=== PATIENT | female | born 1990 | race Native Hawaiian/Other Pacific Islander ===

== ENCOUNTER 2020-04-20 02:41 | Outpatient (CLI) | payer SELFPAY ==
--- NOTE | 2020-04-20 02:55 | NUR ---
LIOR DAWSON presented to unit via from ED, BY W/C, accompanied by RN FACULTY, with c/o 20WKS & 3 DAYS,FEELS LIKE SOMETHING FALLING OUT OF VAGINA. LIOR DAWSON weighed, gowned, voided, and to bed. EFHM and TOCO applied, VS taken. LIOR DAWSON oriented to bed controls, call light, TV, heat, and A/C controls.
[2020-04-20 03:34] LABS: BILIRUBIN,URINE NEGATIVE (NEGATIVE); CLARITY,URINE SL CLOUDY; COLOR,URINE YELLOW; GLUCOSE, URINE (UA) NEGATIVE (NEGATIVE); KETONES,URINE NEGATIVE (NEGATIVE); LEUKOCYTE ESTERASE ,URINE 1+ (NEGATIVE); NITRITE,URINE NEGATIVE (NEGATIVE); PROTEIN,URINE NEGATIVE (NEGATIVE)
[2020-04-20 03:38] VITALS: BP 97/56
[2020-04-20 03:44] VITALS: BP 97/56
[2020-04-20 03:47] LABS: BACTERIA,URINE NEGATIVE /HPF; RENAL EPITHELIAL CELLS,URINE 0-2 /HPF; SQUAMOUS EPITHELIAL CELL,UR 0-2 /HPF; WBC,URINE 0-2 /HPF
--- NOTE | 2020-04-20 04:00 | NUR ---
Discharge packet given and explained, understanding voiced, pt aware clinic will call her for ultrasound and to call clinic if she does not hear from them. Understanding voiced by pt. No further concerns noted.
--- NOTE | 2020-04-20 04:05 | NUR ---
Pt ambulatory off unit at this time accompanied by self, belongings in hand, no ss distress noted.
--- NOTE | 2020-04-21 08:52 | Physician Query-Final Dx ---
REDDY TAYLOR 04/21/20 0852: Clinic Account Progress/Dx Physician Query: Please give diagnosis Please include # weeks gestation Date of Service Apr 20, 2020 at 02:41 ESTEBAN STACK MD 04/21/209: Clinic Account Progress/Dx DIAGNOSIS: Diagnosis Second trimester 20 week gestation Vaginal pressure REDDY TAYLOR Apr 21, 2020 08:52 ESTEBAN STACK MD Apr 21, 2020 21:09
== END 2020-04-20 04:05 | disposition home or self-care (01) ==
LOC: WSo 02:41 → LDRP 02:42 → WSo 04:05
PROVIDERS: ATTEND Family Medicine
DX: O99.891 Other specified diseases and conditions complicating pregnancy (principal); Z3A.20 20 weeks gestation of pregnancy
CPT/HCPCS: 81000; G0463; 99213

== ENCOUNTER 2020-09-23 06:00 | Inpatient (IN) | payer MEDICAID ==
[2020-09-23] VITALS (39 sets, daily range): BP systolic 91–131; BP diastolic 51–83
[~2020-09-23] VITALS: Ht 162.5 cm; Wt 59.8 kg
--- NOTE | 2020-09-23 07:32 | History & Physical-OB ---
OB - Chief Complaint & HPI Date/Time Date of Admission: Date of Admission: Sep 23, 2020 at 06:16 Date seen by a Provider: Sep 23, 2020 Time Seen by a Provider: 11:33 Chief Complaint/History OB-Reason for Admission/Chief: Induction of Labor Hx : 6 Hx Para: 4104 Expected Date of Delivery: Sep 24, 2020 Gestational Age in Weeks: 39 Gestational Age in Days: 6 Indication for induction: other (history of 40 week stillbirth) History of Labs O+, antibody neg, RI. HIV/HepB/RPR NR. GC/chlamydia neg. GBS neg. Allergies and Home Medications Allergies Coded Allergies: No Known Drug Allergies (Unverified , 09/16/20) Home Medications No Active Prescriptions or Reported Meds Patient Home Medication List Home Medication List Reviewed: Yes OB - History Hx of Present Care: Yes Ultrasounds: Normal mid trimester US Obstetrical Complications: None Information Induced Hypertension: No Maternal Gestational Diabetes: No Hemorrhage: No Obstetrical History Hx : 6 Hx Para: 5 Hx # Term Pregnancies: 4 Hx # Pregnancies: 1 Number of Living Children: 4 Hx Termination: No Hx Multiple Gestation: No Hx Ectopic : No Hx Stillbirth: Yes Hx Complication: No Hx Induced Hypertens: Yes Hx Maternal Gestational Diabet: No Hx Hemorrhage: No Delivery History Hx Dystocia: No Hx Forceps Assisted Delivery: No Hx Vacuum Extraction Assisted: No Hx Placenta Abnormality: No Hx Distress: No Hx Large For Gestational Age I: No Hx Small for Gestational Age I: No Hx Section: No Hx Vaginal Delivery Post C-Sec: No Hx Blood Disorders: No Adverse Rxn to Tranfusion: No Patient Past Medical History PMHx: Denies SurgHx: Denies Social History/Family History Alcohol Use: Denies Use Recreational Drug Use: No Smoking Cessation: Never smoker Immunizations Rubella: immune RPR/VDRL: Negative GBS Status: Negative HBsAG: Negative OB - Admission Exam Physical Exam HEENT: NCAT Extremities: Normal Cervical Dilatation: 3cm Effacement: 50% Station: -3 Membranes: Ruptured (at time of exam) Amniotic Fluid: Clear Heart Rate: 140's Accelerations: Accelerations Present Decelerations: No Decelerations Short Term Variability: Present Residential Variability: Average (6-25) Contractions on Admission: None Cooper Scoring Tool (Modified) Dilation (cm): 3-4cm (2) Effacement (%): 51-79% (2) Descent/Station: -3 (0) Cervix Consistency: Soft (2) Cervix Position: Middle/Mid-Position (1) Add 1 point for: Each previous vaginal delivery (1) (5) Cooper Score: 12 OB - Assessment/Plan/Diagnosis Assessment Assessment: induction of labor Admission Dx Induction of labor at 39 weeks gestation History of stillbirth GBS negative Admission Status: Inpatient Order (span 2 midnights) Reason for Inpatient Admission: Labor, delivery and course Plan Plan: Induction Induction Method: AROM (and pitocin) FERNANDO PORRAS MD Sep 23, 2020 07:32
[2020-09-23 08:41] LABS: BASOPHILS % (AUTO) 0 % (0-10); EOSINOPHILS # (AUTO) 0.4 10^3/uL (0.0-0.3); EOSINOPHILS % (AUTO) 4 % (0-10); HEMATOCRIT 32 % (35-52); HEMOGLOBIN 10.6 g/dL (11.5-16.0); LYMPHOCYTES # (AUTO) 1.7 10^3/uL (1.0-4.0); LYMPHOCYTES % (AUTO) 17 % (12-44); MEAN CORPUSCULAR HEMOGLOBIN 27 pg (25-34); MEAN CORPUSCULAR HGB CONC 34 g/dL (32-36); MEAN CORPUSCULAR VOLUME 81 fL (80-99); MONOCYTES # (AUTO) 0.6 10^3/uL (0.0-1.0); MONOCYTES % (AUTO) 5 % (0-12); NEUTROPHILS # (AUTO) 7.6 10^3/uL (1.8-7.8); NEUTROPHILS % (AUTO) 72 % (42-75); PLATELET COUNT 297 10^3/uL (130-400); WHITE BLOOD COUNT 10.5 10^3/uL (4.3-11.0)
[2020-09-23] MEDS ORDERED: OXYTOCIN PRE-MIX DRIP 500 ML IV SCH ×2 (08:45→18:45)
[2020-09-23] MEDS ORDERED: MINERAL OIL CONCENTRATE 99.9% 15 ML UDC TOP PRN (08:45)
[2020-09-23] MEDS: D5 LR IV SOLUTION 1,000 ML IV SCH ×2 (09:08→12:57)
[2020-09-23] MEDS ORDERED: CATHETER FLUSH 10 ML SYR IV SCH (14:00)
[2020-09-23] MEDS ORDERED: fentaNYL INJ 100 MCG/2 ML AMP ONE (15:54)
[2020-09-23] MEDS ORDERED: fentaNYL INJ 100 MCG/2 ML AMP IVP PRN (16:00)
[2020-09-23] MEDS ORDERED: LIDOCAINE/EPI 2% 1:200,00 (XYLOCAINE) 20 ML VIAL ONE (17:24)
[2020-09-23] MEDS ORDERED: LIDOCAINE/EPI 2% 1:100,00 (XYLOCAINE) 20 ML VIAL INJ ONE (18:30)
--- NOTE | 2020-09-23 18:34 | OB Labor & Delivery Record ---
Vag Delivery Note Vag Delivery Note Date of Delivery: 09/23/20 Preoperative Diagnosis: Jessica Lakhani is a (30 /Para 6 / 5, Gestational Age (wks)39with 6 days Postoperative Diagnosis: Same Surgeon: FERNANDO PORRAS International Nurse: JOHN Munoz Anesthesia: none Delivery Type: Findings: Viable male , apgars 7/8, weight 3090 Lacerations: first degree perineal laceration Intact placenta with 3 vessel cord. No nuchal cord, body cord or shoulder dystocia Estimated Blood Loss: 100 ml Complications: None Condition: Stable Description of Procedure: The patient is a 30 year old female who presented for induction of labor. She was admitted and informed consent was obtained. Her labor course was u nremarkable. She progressed to complete dilatation and began to push. She was then set up for delivery. The infant's head was delivered atraumatically in the OA position. The shoulders and remainder of the 's body were then delivered without difficulty. Upon delivery, the head was held below the level of the perineum and the mouth and nares were bulb suctioned. The cord was doubly clamped and cut and the infant was handed off to the pediatric staff. An intact placenta with 3-vessel cord delivered via Emily and there was found to be minimal bleeding.~ Vigorous fundal massage was performed and the fundus was found to be firm. IV oxytocin was given. Examination of the vagina and perineum revealed a first degree perineal laceration repaired in the usual fashion with 3-0 vicryl suture. Following the repair, sponge, instrument and needle counts were correct. Mom and baby were both in stable condition in the labor suite. Vitals - Labs Vital Signs - I&O Vital Signs Date Time Temp Pulse Resp B/P (MAP) Pulse Ox O2 Delivery O2 Flow Rate FiO2 09/23/20 17:45 82 20 117/69 (85) Room Air 09/23/20 17:30 68 20 122/64 (83) Room Air 09/23/20 17:15 78 20 115/71 (86) 99 Room Air 09/23/20 17:00 84 20 131/81 (98) 99 Room Air 09/23/20 16:45 72 20 113/74 (87) 99 Room Air 09/23/20 16:30 70 20 112/70 (84) 98 Room Air 09/23/20 16:15 69 20 108/72 (84) 99 Room Air 09/23/20 16:00 83 20 121/77 (92) 99 Room Air 09/23/20 15:45 36.2 76 20 106/69 (81) 100 Room Air 09/23/20 15:30 70 20 109/66 (80) 99 Room Air 09/23/20 15:15 84 20 104/64 (77) 99 Room Air 09/23/20 15:00 74 20 100/62 (75) 100 Room Air 09/23/20 14:45 78 20 102/62 (75) 98 Room Air 09/23/20 14:30 88 20 98/55 (69) 99 Room Air 09/23/20 14:15 82 20 94/51 (65) 99 Room Air 09/23/20 14:00 75 20 93/52 (66) 98 Room Air 09/23/20 13:45 71 20 93/53 (66) 99 Room Air 09/23/20 13:30 67 20 98/83 (88) 100 Room Air 09/23/20 13:15 72 20 108/60 (76) 99 Room Air 09/23/20 13:00 72 20 108/60 (76) 99 Room Air 09/23/20 12:45 83 20 107/64 (78) 99 Room Air 09/23/20 12:30 66 20 99/61 (74) 99 Room Air 09/23/20 12:15 72 20 110/71 (84) 100 Room Air 09/23/20 12:00 68 20 106/68 (81) 99 Room Air 09/23/20 11:45 67 20 109/72 (84) 99 Room Air 09/23/20 11:30 65 20 111/75 (87) 100 Room Air 09/23/20 11:03 36.9 82 20 98 Room Air 09/23/20 11:00 79 20 95/57 (70) 98 Room Air 09/23/20 10:30 74 20 97/55 (69) 99 Room Air 09/23/20 10:00 75 20 91/58 (69) 99 Room Air 09/23/20 09:30 71 20 101/62 (75) 100 Room Air 09/23/20 09:10 76 20 103/55 (71) 100 Room Air 6/24/21 08:00 90 20 97/61 (73) 99 Room Air 09/23/20 07:20 36.9 90 20 99/70 (80) 98 Room Air Labs Laboratory Tests 09/23/20 07:35: White Blood Count 10.5, Red Blood Count 3.87, Hemoglobin 10.6L, Hematocrit 32L, Mean Corpuscular Volume 81, Mean Corpuscular Hemoglobin 27, Mean Corpuscular Hemoglobin Concent 34, Red Cell Distribution Width 13.7, Platelet Count 297, Mean Platelet Volume 9.0, Immature Granulocyte % (Auto) 1, Neutrophils (%) (Auto) 72, Lymphocytes (%) (Auto) 17, Monocytes (%) (Auto) 5, Eosinophils (%) (Auto) 4, Basophils (%) (Auto) 0, Neutrophils # (Auto) 7.6, Lymphocytes # (Auto) 1.7, Monocytes # (Auto) 0.6, Eosinophils # (Auto) 0.4H, Basophils # (Auto) 0.0, Immature Granulocyte # (Auto) 0.1 FERNANDO PORRAS MD Sep 23, 2020 18:34
[2020-09-23] MEDS ORDERED: BENZOCAINE/MENTHOL (DERMOPLAST) 56 ML CAN TP PRN (18:45)
[2020-09-23] MEDS ORDERED: WITCH HAZEL(TUCKS) 40 EA JAR TOP PRN (18:45)
[2020-09-23] MEDS ORDERED: MEASLES,MUMPS,RUBELLA 1 EA INJ SQ ONE (18:45)
[2020-09-23] MEDS ORDERED: TETANUS,DIPTH,PERTUSS P/F (BOOSTRIX) 0.5 ML VIAL IM ONE (18:45)
[2020-09-23] MEDS: DOCUSATE SODIUM 100 MG (COLACE) CAP PO SCH (21:06)
[2020-09-23] MEDS: IBUPROFEN 600 MG (MOTRIN) TAB PO SCH (21:06)
[2020-09-23] MEDS: CATHETER FLUSH 10 ML SYR IV SCH (21:07)
[2020-09-24 01:23] VITALS: BP 106/59
[2020-09-24] MEDS: IBUPROFEN 600 MG (MOTRIN) TAB PO SCH ×4 (01:23→18:54)
[2020-09-24 04:32] VITALS: BP 105/67
[2020-09-24 05:53] LABS: BASOPHILS # (AUTO) 0.1 10^3/uL (0.0-0.1); BASOPHILS % (AUTO) 0 % (0-10); EOSINOPHILS # (AUTO) 0.2 10^3/uL (0.0-0.3); EOSINOPHILS % (AUTO) 1 % (0-10); HEMATOCRIT 34 % (35-52); HEMOGLOBIN 10.9 g/dL (11.5-16.0); LYMPHOCYTES # (AUTO) 1.9 10^3/uL (1.0-4.0); LYMPHOCYTES % (AUTO) 11 % (12-44); MEAN CORPUSCULAR HEMOGLOBIN 27 pg (25-34); MEAN CORPUSCULAR HGB CONC 32 g/dL (32-36); MEAN CORPUSCULAR VOLUME 83 fL (80-99); MEAN PLATELET VOLUME 8.8 fL (9.0-12.2); MONOCYTES # (AUTO) 0.7 10^3/uL (0.0-1.0); MONOCYTES % (AUTO) 4 % (0-12); NEUTROPHILS # (AUTO) 14.5 10^3/uL (1.8-7.8); NEUTROPHILS % (AUTO) 83 % (42-75); PLATELET COUNT 259 10^3/uL (130-400); WHITE BLOOD COUNT 17.4 10^3/uL (4.3-11.0)
[2020-09-24] MEDS: CATHETER FLUSH 10 ML SYR IV SCH (06:03)
[2020-09-24 06:36] LABS: EOSINOPHILS % (MANUAL) 1 %; LYMPHOCYTES % (MANUAL) 13 %; MONOCYTES % (MANUAL) 1 %; NEUTROPHILS % (MANUAL) 85 %; RBC MORPH NORMAL
[2020-09-24] MEDS ORDERED: IBUP-844 PO (06:46)
[2020-09-24] MEDS ORDERED: FERR325T5 PO (06:46)
[2020-09-24] MEDS ORDERED: PREN1TAB79 PO (06:46)
--- NOTE | 2020-09-24 06:46 | Discharge Summary ---
Discharge Summary Hospital Course Hospital Course Date of Admission: Sep 23, 2020 at 06:16 Admission Diagnosis : Family Physician/Provider: Fernando Lomeli MD Date of Discharge: 09/24/20 Discharge Diagnosis: s/p spontaneous vaginal delivery First degree perineal laceration repair Hospital Course: Pt admitted for IOL at 39w6d and had unremarkable labor, delivery and course. Labs and Pending Lab Test: Laboratory Tests 09/23/20 07:35: White Blood Count 10.5, Red Blood Count 3.87, Hemoglobin 10.6L, Hematocrit 32L, Mean Corpuscular Volume 81, Mean Corpuscular Hemoglobin 27, Mean Corpuscular Hemoglobin Concent 34, Red Cell Distribution Width 13.7, Platelet Count 297, Mean Platelet Volume 9.0, Immature Granulocyte % (Auto) 1, Neutrophils (%) (Auto) 72, Lymphocytes (%) (Auto) 17, Monocytes (%) (Auto) 5, Eosinophils (%) (Auto) 4, Basophils (%) (Auto) 0, Neutrophils # (Auto) 7.6, Lymphocytes # (Auto) 1.7, Monocytes # (Auto) 0.6, Eosinophils # (Auto) 0.4H, Basophils # (Auto) 0.0, Immature Granulocyte # (Auto) 0.1 09/24/20 05:40: White Blood Count 17.4H, Red Blood Count 4.05, Hemoglobin 10.9L, Hematocrit 34L, Mean Corpuscular Volume 83, Mean Corpuscular Hemoglobin 27, Mean Corpuscular Hemoglobin Concent 32, Red Cell Distribution Width 13.7, Platelet Count 259, Mean Platelet Volume 8.8L, Immature Granulocyte % (Auto) 1, Neutrophils (%) (Auto) 83H, Lymphocytes (%) (Auto) 11L, Monocytes (%) (Auto) 4, Eosinophils (%) (Auto) 1, Basophils (%) (Auto) 0, Neutrophils # (Auto) 14.5H, Lymphocytes # (Auto) 1.9, Monocytes # (Auto) 0.7, Eosinophils # (Auto) 0.2, Basophils # (Auto) 0.1, Immature Granulocyte # (Auto) 0.1, Neutrophils % (Manual) 85, Lymphocytes % (Manual) 13, Monocytes % (Manual) 1, Eosinophils % (Manual) 1, Blood Morphology Comment NORMAL Home Meds Active No Active Prescriptions or Reported Medications Assessment/Pt DC Instructions Follow up with Dr. Lomeli in 6 weeks for visit. Discharge Diet: Regular Diet Activity as Tolerated: Yes (avoid strenuous activity x 6 weeks) Discharge Physical Examination Allergies: Coded Allergies: No Known Drug Allergies (Unverified , 09/16/20) General Appearance: No Apparent Distress Respiratory: Lungs Clear, Normal Breath Sounds Cardiovascular: Regular Rate, Rhythm, No Murmur Gastrointestinal: Other (fundus firm below umbilicus) Extremity: No Pedal Edema Skin: Normal Color, Warm/Dry Neurologic/Psychiatric: Normal Mood/Affect FERNANDO LOMELI MD Sep 24, 2020 06:46
[2020-09-24 08:20] VITALS: BP 95/58
[2020-09-24] MEDS: DOCUSATE SODIUM 100 MG (COLACE) CAP PO SCH ×2 (08:20→20:00)
[2020-09-24 13:17] VITALS: BP 101/61
[2020-09-24 16:16] VITALS: BP 93/51
[2020-09-24 19:59] VITALS: BP 97/65
[2020-09-25] MEDS: CATHETER FLUSH 10 ML SYR IV SCH ×2 (00:02→06:46)
[2020-09-25 00:58] VITALS: BP 100/64
[2020-09-25] MEDS: IBUPROFEN 600 MG (MOTRIN) TAB PO SCH ×3 (00:59→14:10)
[2020-09-25] MEDS: DOCUSATE SODIUM 100 MG (COLACE) CAP PO SCH (08:29)
[2020-09-25 08:30] VITALS: BP 94/60
[2020-09-25 14:15] VITALS: BP 102/58
[2020-09-26] MEDS ORDERED: PRAM15FO3 TP (01:42)
== END 2020-09-25 18:05 | disposition home or self-care (01) | DRG 807 ==
LOC: LDRP 06:16 → WS 21:44
PROVIDERS: ADMIT Family Medicine; ATTEND Family Medicine
PROC: 10E0XZZ Delivery of Products of Conception, External Approach (ICD-10-PCS; principal; 2020-09-23)
PROC: 0HQ9XZZ Repair Perineum Skin, External Approach (ICD-10-PCS; 2020-09-23)
DX: O70.0 First degree perineal laceration during delivery (principal); Z37.0 Single live birth; Z3A.39 39 weeks gestation of pregnancy
CPT/HCPCS: 36415; 85007; 85025; 85027; 86850; 86900; 86901

== ENCOUNTER 2020-09-26 01:11 | Emergency (ER) | payer MEDICAID ==
[~2020-09-26] VITALS: Ht 152.4 cm; Wt 50.0 kg
[~2020-09-26 01:11] MED LIST: FERR325T5 PO; IBUP-844 PO; PREN1TAB79 PO
[2020-09-26 01:20] VITALS: BP 115/77
--- NOTE | 2020-09-26 01:29 | ED GU-Female ---
General Stated Complaint: WOUND CARE/STITCH ISSUES Source: patient Exam Limitations: no limitations History of Present Illness Date Seen by Provider: Sep 26, 2020 Time Seen by Provider: 01:20 Initial Comments Patient presents to the ER by private conveyance from home with chief complaint she is having some increased pain in the area of her vagina where she had a first-degree perineal laceration repair. She is [address] Lomeli. She says she had a bowel movement and shortly after that is when the pain started. She says the bowel movement was very hard and formed. She is not using stool softeners. She has had no fevers discharge dysuria. Allergies and Home Medications Allergies Coded Allergies: No Known Drug Allergies (Unverified , 09/16/20) Home Medications Ferrous Sulfate 325 Mg Tablet.dr, 325 MG PO DAILY Prescribed by: FERNANDO LOMELI on 09/24/20 0646 Ibuprofen 600 Mg Tablet, 600 MG PO Q6H PRN for PAIN-MODERATE (5-7) Prescribed by: FERNANDO LOMELI on 09/24/20 0646 Vit W-Ca,Fe,FA(<1 mg) 1 Each Tablet, 1 EACH PO DAILY Prescribed by: FERNANDO LOMELI on 09/24/20 0646 Patient Home Medication List Home Medication List Reviewed: Yes Review of Systems Review of Systems Constitutional: No chills, No diaphoresis EENTM: No ear discharge, No ear pain Respiratory: No cough, No short of breath Cardiovascular: No chest pain, No edema Gastrointestinal: No abdominal pain, No constipation, No nausea Genitourinary: denies discharge, denies dysuria : No Musculoskeletal: No back pain, No joint pain Past [id number] Hx Patient Social History Alcohol Use: Denies Use Drug of Choice: Denies Smoking Status: Never a Smoker Past Medical History Adverse Reaction/Blood Tranf: No Physical Exam Vital Signs Capillary Refill : Height, Weight, BMI Height: '" Weight: lbs. oz. kg; 22.64 BMI Method: General Appearance: WD/WN, no apparent distress HEENT: PERRL/EOMI, pharynx normal Neck: full range of motion, normal inspection Cardiovascular: normal peripheral pulses, regular rate, rhythm Respiratory: no respiratory distress, no accessory muscle use Pelvic: vaginal bleeding (Small amount of thin vaginal show still seen. There is an area of first-degree perineal laceration at the 6 o'clock position of the vulva has opened up from where it was sutured closed. Less than 1 cm. It is very tender to palpation. She also has large presenting external hemorrhoids which are not infarcted nor tender to palpation.) Neurologic/Psychiatric: alert, normal mood/affect, oriented x 3 Skin: normal color, warm/dry Progress/Results/Core Measures Suspected Sepsis SIRS Temperature: Pulse: Respiratory Rate: Blood Pressure / Mean: Results/Orders Vital Signs/I&O Capillary Refill : Progress Note : Time: 01:37 Progress Note Proctofoam for the hemorrhoids. Colace and laxatives as necessary. Described a conservative course for the vaginal tear. Does not appear to be infected. The thin serosanguineous vaginal discharge does not have a malodor. Departure Impression Primary Impression: Perineal laceration Additional Impression: Hemorrhoids Qualified Codes: K64.9 - Unspecified hemorrhoids Disposition: HOME, SELF-CARE Condition: Stable Departure-Patient Inst. Decision time for Depature: 01:39 Referrals: FERNANDO LOMELI MD (PCP/Family) Primary Care Physician Patient Instructions: Hemorrhoids (DC), Maternal Injuries From Childbirth Add. Discharge Instructions: Keep the wound clean with regular soap and water only. The skin will heal on its own and repair. If you are having pain especially from the hemorrhoids you can apply the pramoxine foam directly to the rectum. Follow-up with Dr. Lomeli in the clinic next week for reexamination. It is important that you avoid straining or having hard stools. Colace 100 mg twice a day for the next 6 months to reduce straining while going to the bathroom. MiraLAX 1 capful in 6 to 8 ounces as needed 3-4 times a day to maintain regular bowel movements. Lukewarm sitz bath's several times a day as necessary for pain in this region. Scripts Pramoxine HCl (Proctofoam) 15 Gm Foam 1 GM TP Q6H PRN for PAIN-BREAKTHROUGH, #1 EA 0 Refills Prov: MO DESHPANDE 09/26/20 MO DESHPANDE Sep 26, 2020 01:29
[2020-09-26] MEDS ORDERED: PRAM15FO3 TP (01:42)
== END 2020-09-26 01:47 | disposition home or self-care (01) ==
LOC: EDUNIT# 01:11 → ER 01:13
DX: O70.0 First degree perineal laceration during delivery (principal); K64.9 Unspecified hemorrhoids; Z3A.00 Weeks of gestation of pregnancy not specified
CPT/HCPCS: 99282

== ENCOUNTER 2021-06-13 14:49 | Emergency (ER) | payer OTHER, MEDICAID ==
[~2021-06-13 14:49] MED LIST changes: +PRAM15FO3 TP
[2021-06-13] MEDS ORDERED: ONDANSETRON 4 MG/2 ML (SDV) Z0FRAN IVP ONE (15:00)
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
[2021-06-13 15:16] LABS: HEMATOCRIT 37 % (35-52); HEMOGLOBIN 12.6 g/dL (11.5-16.0); MEAN CORPUSCULAR HEMOGLOBIN 30 pg (25-34); MEAN CORPUSCULAR HGB CONC 35 g/dL (32-36); MEAN CORPUSCULAR VOLUME 86 fL (80-99); MEAN PLATELET VOLUME 9.9 fL (9.0-12.2); PLATELET COUNT 268 10^3/uL (130-400); WHITE BLOOD COUNT 5.6 10^3/uL (4.3-11.0)
[2021-06-13 15:20] LABS: ALBUMIN 3.7 GM/DL (3.2-4.5); CHLORIDE 104 MMOL/L (98-107); POTASSIUM 3.2 MMOL/L (3.6-5.0); SODIUM 136 MMOL/L (135-145)
[2021-06-13 15:21] LABS: CALCIUM 8.8 MG/DL (8.5-10.1)
[2021-06-13 15:23] LABS: GLUCOSE 111 MG/DL (70-105); TOTAL PROTEIN 7.2 GM/DL (6.4-8.2)
[2021-06-13 15:24] LABS: BILIRUBIN,TOTAL 0.4 MG/DL (0.1-1.0); CARBON DIOXIDE 24 MMOL/L (21-32)
[2021-06-13 15:26] LABS: ALKALINE PHOSPHATASE 89 U/L (40-136)
[2021-06-13 15:27] LABS: CREATININE SERUM 0.66 MG/DL (0.60-1.30); GFR ESTIMATED 119
[2021-06-13 15:28] LABS: BILIRUBIN,DIRECT 0.2 MG/DL (0.0-0.3); BILIRUBIN,INDIRECT 0.2 MG/DL; BUN/CREATININE RATIO 9
[2021-06-13 15:29] LABS: ALANINE AMINOTRANSFERASE 11 U/L (0-55)
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
[2021-06-13] MEDS ORDERED: KETOROLAC 30 MG/ML VIAL IVP ONE (16:30)
[2021-06-13] MEDS ORDERED: ORPHENADRINE 60 MG/2 ML (NORFLEX) AMP (ED ONLY) IV ONE (16:30)
[2021-06-13] MEDS ORDERED: CYCL10TA25 PO (16:31)
[2021-06-13 16:40] VITALS: BP 132/96
== END 2021-06-13 16:46 | disposition home or self-care (01) ==
LOC: EDUNIT# 14:49 → ER 14:50
DX: S20.219A Contusion of unspecified front wall of thorax, initial encounter (principal); M62.838 Other muscle spasm; T59.811A Toxic effect of smoke, accidental (unintentional), initial encounter; V89.2XXA Person injured in unspecified motor-vehicle accident, traffic, initial encounter
CPT/HCPCS: 70450; 71046; 72125; 80048; 80076; 84484; 84703; 85027; 93005; 99284; G0480; 36415; 80320

== ENCOUNTER 2022-06-16 12:50 | Outpatient (CLI) | payer MEDICAID ==
[~2022-06-16] VITALS: Ht 152.4 cm; Wt 56.8 kg
[~2022-06-16 12:50] MED LIST changes: +CYCL10TA25 PO
[2022-06-16 13:09] VITALS: BP 90/61
[2022-06-16] MEDS ORDERED: NS IV ONE ×2 (13:15)
[2022-06-16] MEDS ORDERED: IRON SUCROSE IV ONE ×2 (13:15)
== END 2022-06-16 15:23 ==
LOC: SDC 12:50
PROVIDERS: ATTEND Family Medicine
DX: O99.013 Anemia complicating pregnancy, third trimester (principal); Z3A.00 Weeks of gestation of pregnancy not specified

== ENCOUNTER 2022-07-07 00:30 | Inpatient (IN) | payer MEDICAID ==
[2022-07-07] VITALS (15 sets, daily range): BP systolic 92–131; BP diastolic 52–79
[~2022-07-07] VITALS: Ht 152.4 cm; Wt 57.7 kg
[2022-07-07] MEDS ORDERED: LIDOCAINE 1% INJ 10 ML VIAL ONE (02:33)
[2022-07-07] MEDS ORDERED: OXYTOCIN PRE-MIX DRIP 0 ML IV ONE (02:34)
[2022-07-07] MEDS ORDERED: D5 LR IV SOLUTION 1,000 ML IV ONE (02:44)
[2022-07-07] MEDS ORDERED: D5 LR IV SOLUTION 1,000 ML IV SCH (02:45)
[2022-07-07] MEDS ORDERED: LIDOCAINE 1% INJ 20 ML VIAL IJ PRN (02:45)
[2022-07-07] MEDS ORDERED: MINERAL OIL 30 ML UDC TOP PRN (02:45)
[2022-07-07 02:51] LABS: BASOPHILS % (AUTO) 0 % (0-10); EOSINOPHILS # (AUTO) 0.1 10^3/uL (0.0-0.3); EOSINOPHILS % (AUTO) 1 % (0-10); HEMATOCRIT 33 % (35-52); HEMOGLOBIN 10.4 g/dL (11.5-16.0); LYMPHOCYTES # (AUTO) 1.4 10^3/uL (1.0-4.0); LYMPHOCYTES % (AUTO) 14 % (12-44); MEAN CORPUSCULAR HEMOGLOBIN 24 pg (25-34); MEAN CORPUSCULAR HGB CONC 32 g/dL (32-36); MEAN CORPUSCULAR VOLUME 77 fL (80-99); MEAN PLATELET VOLUME 9.1 fL (9.0-12.2); MONOCYTES # (AUTO) 0.4 10^3/uL (0.0-1.0); MONOCYTES % (AUTO) 4 % (0-12); NEUTROPHILS # (AUTO) 7.6 10^3/uL (1.8-7.8); NEUTROPHILS % (AUTO) 79 % (42-75); PLATELET COUNT 286 10^3/uL (130-400); WHITE BLOOD COUNT 9.7 10^3/uL (4.3-11.0)
--- NOTE | 2022-07-07 03:21 | History & Physical-OB ---
OB - Chief Complaint & HPI Date/Time Date of Admission: Date of Admission: Jul 07, 2022 at 02:10 Date seen by a Provider: Jul 07, 2022 Time Seen by a Provider: 03:16 Chief Complaint/History OB-Reason for Admission/Chief: Onset of Labor Hx : 7 Hx Para: 5 Expected Date of Delivery: Jul 05, 2022 Gestational Age in Weeks: 40 Gestational Age in Days: 2 Other reason for admission: Patient presented with complaints of contraction. SVE 6-7 on admission. Admitted for labor with expectant management. History of Labs Blood type O+, antibody screen negative RI HIV/RPR/HepBC NR GBS negative Allergies and Home Medications Allergies Coded Allergies: No Known Drug Allergies (Unverified , 06/16/22) Patient Home Medication List Home Medication List Reviewed: Yes Cyclobenzaprine HCl (Cyclobenzaprine HCl) 10 Mg Tablet, 10 MG PO Q8H PRN for SPASMS Prescribed by: MO DESHPANDE on 06/13/21 1631 Ferrous Sulfate (Ferrous Sulfate) 325 Mg Tablet.dr, 325 MG PO DAILY Prescribed by: FERNANDO PORRAS on 09/24/20 0646 Ibuprofen (Ibu) 600 Mg Tablet, 600 MG PO Q6H PRN for PAIN-MODERATE (5-7) Prescribed by: FERNANDO PORRAS on 09/24/20 0646 Pramoxine HCl (Proctofoam) 15 Gm Foam, 1 GM TP Q6H PRN for PAIN-BREAKTHROUGH Prescribed by: MO DESHPANDE on 09/26/20 0142 Vit W-Ca,Fe,FA(<1 mg) ( Vitamins) 1 Each Tablet, 1 EACH PO DAILY Prescribed by: FERNANDO PORRAS on 09/24/20 0646 OB - History Hx of Present Care: Yes Ultrasounds: Normal mid trimester US Obstetrical Complications: Gestational Diabetes Medical Complications: None Information Induced Hypertension: No Maternal Gestational Diabetes: No Hemorrhage: No Obstetrical History Hx : 7 Hx Para: 6 Number of Living Children: 5 Hx Termination: No Hx Multiple Gestation: No Hx Ectopic : No Hx Stillbirth: Yes Hx Complication: No Hx Induced Hypertens: Yes Hx Maternal Gestational Diabet: No Hx Hemorrhage: No Delivery History Hx Dystocia: No Hx Forceps Assisted Delivery: No Hx Vacuum Extraction Assisted: No Hx Placenta Abnormality: No Hx Distress: No Hx Large For Gestational Age I: No Hx Small for Gestational Age I: No Hx Section: No Hx Vaginal Delivery Post C-Sec: No Hx Blood Disorders: No Adverse Rxn to Tranfusion: No Patient Past Medical History PMHx: Denies SurgHx: Denies Social History/Family History Alcohol Use: Denies Use Recreational Drug Use: No 2nd Hand Smoke Exposure: No Immunizations Influenza Vaccine Up-to-Date: No; Not Current Hepatitis A: Yes Hepatitis B: Yes Rubella: immune RPR/VDRL: Negative GBS Status: Negative HBsAG: Negative OB - Admission Exam Physical Exam Vitals: Vital Signs 07/07/22 07/07/22 01:21 01:59 Temp 36.8 Pulse 84 Resp 18 B/P (MAP) 110/73 Pulse Ox 99 O2 Delivery Room Air Abdomen: Non tender Cervical Dilatation: 9cm Effacement: 100% Station: +1 Membranes: Ruptured (AROM) Amniotic Fluid: Thick Meconium Heart Rate: 140's Accelerations: Accelerations Present Decelerations: No Decelerations Short Term Variability: Present Custodial Variability: Average (6-25) Contractions on Admission: < 5 Minutes Apart Intensity: Moderate Labs Laboratory Tests Test 07/07/22 02:15 Range/Units White Blood Count 9.7 4.3-11.0 10^3/uL Red Blood Count 4.26 3.80-5.11 10^6/uL Hemoglobin 10.4 L 11.5-16.0 g/dL Hematocrit 33 L 35-52 % Mean Corpuscular Volume 77 L 80-99 fL Mean Corpuscular Hemoglobin 24 L 25-34 pg Mean Corpuscular Hemoglobin Concent 32 32-36 g/dL Red Cell Distribution Width 17.4 H 10.0-14.5 % Platelet Count 286 130-400 10^3/uL Mean Platelet Volume 9.1 9.0-12.2 fL Immature Granulocyte % (Auto) 1 % Neutrophils (%) (Auto) 79 H 42-75 % Lymphocytes (%) (Auto) 14 12-44 % Monocytes (%) (Auto) 4 0-12 % Eosinophils (%) (Auto) 1 0-10 % Basophils (%) (Auto) 0 0-10 % Neutrophils # (Auto) 7.6 1.8-7.8 10^3/uL Lymphocytes # (Auto) 1.4 1.0-4.0 10^3/uL Monocytes # (Auto) 0.4 0.0-1.0 10^3/uL Eosinophils # (Auto) 0.1 0.0-0.3 10^3/uL Basophils # (Auto) 0.0 0.0-0.1 10^3/uL Immature Granulocyte # (Auto) 0.1 0.0-0.1 10^3/uL OB - Assessment/Plan/Diagnosis Assessment Assessment: active labor Admission Dx at 40wk2d, spontaneous onset of labor meconium fluid on AROM Admission Status: Inpatient Order (span 2 midnights) Reason for Inpatient Admission: labor and delivery Plan Plan: Expectant Management DAPHNIE KYLE DO Jul 07, 2022 03:21
--- NOTE | 2022-07-07 04:26 | OB Labor & Delivery Record ---
Vag Delivery Note Vag Delivery Note Date of Delivery: 07/07/22 Preoperative Diagnosis: Jessica Lakhani is a (31 /Para 7 / 6, Gestational Age (wks)40with spontaneous onset of labor. Postoperative Diagnosis: Same Surgeon: DAPHNIE KYLE Anesthesia: none Delivery Type: spontaneous vaginal deliver @ 0410 Findings: Viable female , apgars 8/9, weight 8#7 (3815g) Lacerations: none Intact placenta with 3 vessel cord. No nuchal cord, body cord or shoulder dystocia Estimated Blood Loss: 100 ml Complications: None Condition: Stable Description of Procedure: The patient is a 31 year old female who presented with spontaneous labor dilated 6-7cm. She was admitted and informed consent was obtained. Her labor course was remarkable for meconium fluid with AROM. She progressed to complete dilatation and began to push. She was then set up for delivery. The infant's head was delivered atraumatically in the WILNER position. There was a mild shoulder dystocia that lasted <30 seconds which was reduced with McRobert's manuver and suprapubic pressure. The remainder of the 's body was then delivered without difficulty. Upon delivery, the infant was vigorous and placed on maternal chest and the mouth and nares were bulb suctioned. After a delay cord was doubly clamped and cut and the remained on maternal chest. An intact placenta with 3-vessel cord delivered via Emily and there was found to be minimal bleeding.~ Vigorous fundal massage was performed and the fundus was found to be firm. IV oxytocin was given. Examination of the vagina and perineum revealed no lacerations or abrasions. Sponge, instrument and needle counts were correct. Mom and baby were both in stable condition in the labor suite. Vitals - Labs Vital Signs - I&O Vital Signs Date Time Temp Pulse Resp B/P (MAP) Pulse Ox O2 Delivery O2 Flow Rate FiO2 07/07/22 01:59 36.8 84 18 99 Room Air 07/07/22 01:21 36.8 84 18 110/73 99 Room Air Labs Laboratory Tests 07/07/22 02:15: White Blood Count 9.7, Red Blood Count 4.26, Hemoglobin 10.4L, Hematocrit 33L, Mean Corpuscular Volume 77L, Mean Corpuscular Hemoglobin 24L, Mean Corpuscular Hemoglobin Concent 32, Red Cell Distribution Width 17.4H, Platelet Count 286, Mean Platelet Volume 9.1, Immature Granulocyte % (Auto) 1, Neutrophils (%) (Auto) 79H, Lymphocytes (%) (Auto) 14, Monocytes (%) (Auto) 4, Eosinophils (%) (Auto) 1, Basophils (%) (Auto) 0, Neutrophils # (Auto) 7.6, Lymphocytes # (Auto) 1.4, Monocytes # (Auto) 0.4, Eosinophils # (Auto) 0.1, Basophils # (Auto) 0.0, Immature Granulocyte # (Auto) 0.1 DAPHNIE KYLE DO Jul 07, 2022 04:26
[2022-07-07] MEDS ORDERED: WITCH HAZEL(TUCKS) 40 EA JAR TOP PRN (04:30)
[2022-07-07] MEDS ORDERED: BENZOCAINE/MENTHOL (DERMOPLAST) 56 ML CAN TP PRN (04:30)
[2022-07-07] MEDS ORDERED: TETANUS,DIPTH,PERTUSS P/F (BOOSTRIX) 0.5 ML VIAL IM ONE (04:30)
[2022-07-07] MEDS ORDERED: OXYTOCIN PRE-MIX DRIP 500 ML IV SCH (04:30)
[2022-07-07] MEDS ORDERED: BENZOCAINE/MENTHOL (DERMOPLAST) 56 ML CAN TP ONE (04:40)
[2022-07-07] MEDS ORDERED: OXYTOCIN PRE-MIX DRIP 500 ML IV ONE (04:40)
[2022-07-07] MEDS ORDERED: IBUPROFEN 600 MG (MOTRIN) TAB PO ONE (04:40)
[2022-07-07] MEDS ORDERED: WITCH HAZEL(TUCKS) 40 EA JAR ONE (04:40)
[2022-07-07] MEDS: IBUPROFEN 600 MG (MOTRIN) TAB PO SCH ×3 (04:46→20:16)
[2022-07-07] MEDS: ACETAMINOPHEN 500 MG TAB (TYLENOL) PO SCH ×3 (05:04→20:15)
[2022-07-07] MEDS ORDERED: CATHETER FLUSH 10 ML SYR IV SCH ×2 (06:00)
[2022-07-07] MEDS: DOCUSATE SODIUM 100 MG (COLACE) CAP PO SCH ×2 (08:39→20:16)
[2022-07-07] MEDS: PRENATAL VITAMIN 1 EA TAB PO SCH (08:39)
[2022-07-08 02:33] VITALS: BP 92/64
[2022-07-08] MEDS: ACETAMINOPHEN 500 MG TAB (TYLENOL) PO SCH ×2 (02:34→09:18)
[2022-07-08] MEDS: IBUPROFEN 600 MG (MOTRIN) TAB PO SCH ×2 (02:35→09:18)
[2022-07-08 05:27] LABS: BASOPHILS % (AUTO) 0 % (0-10); EOSINOPHILS # (AUTO) 0.1 10^3/uL (0.0-0.3); EOSINOPHILS % (AUTO) 1 % (0-10); HEMATOCRIT 26 % (35-52); HEMOGLOBIN 8.6 g/dL (11.5-16.0); LYMPHOCYTES % (AUTO) 16 % (12-44); MEAN CORPUSCULAR HEMOGLOBIN 25 pg (25-34); MEAN CORPUSCULAR HGB CONC 33 g/dL (32-36); MEAN CORPUSCULAR VOLUME 77 fL (80-99); MEAN PLATELET VOLUME 9.5 fL (9.0-12.2); MONOCYTES # (AUTO) 0.6 10^3/uL (0.0-1.0); MONOCYTES % (AUTO) 5 % (0-12); NEUTROPHILS # (AUTO) 9.3 10^3/uL (1.8-7.8); NEUTROPHILS % (AUTO) 77 % (42-75); PLATELET COUNT 215 10^3/uL (130-400); WHITE BLOOD COUNT 12.2 10^3/uL (4.3-11.0)
[2022-07-08 09:12] VITALS: BP 83/45
[2022-07-08] MEDS: PRENATAL VITAMIN 1 EA TAB PO SCH (09:18)
[2022-07-08] MEDS: DOCUSATE SODIUM 100 MG (COLACE) CAP PO SCH (09:18)
--- NOTE | 2022-07-08 09:49 | Discharge Summary ---
Diagnosis/Chief Complaint Date of Admission Jul 07, 2022 at 02:10 Date of Discharge 07/08/22 Admission Diagnosis Admission Diagnosis Third Trimester 40 weeks gestation Discharge Diagnosis Uncomplicated of term female infant Asymptomatic anemia of acute blood loss Discharge Summary-Simple/Stand Procedures Discharge Physical Examination Allergies: Coded Allergies: No Known Drug Allergies (Unverified , 06/16/22) Vitals & I&Os Vital Sign - Last 12Hours Date Time Temp Pulse Resp B/P (MAP) Pulse Ox O2 Delivery O2 Flow Rate FiO2 07/08/22 02:33 36.6 81 18 92/64 (73) 97 Room Air 07/07/22 03:55 15.00 General Appearance: Alert, Oriented X3, No Acute Distress Respiratory: Clear to Auscultation, Normal Air Movement Cardiovascular: Regular Rate, No Murmurs Abdominal: Normal Bowel Sounds, Soft, No Tenderness, Other (fundus firm and at umbilicus) Extremities: No Edema, No Tenderness/Swelling Psych/Mental Status: Mental Status NL Hospital Course See final discharge diagnosis. Discussion & Recommendations 31 yo G7 now P7 delivered term female via uncomplicated Discharge Condition at discharge stable Instructions to patient/family Please see electronic discharge instructions given to patient. Discharge Medications Reviewed and agree with Discharge Medication list on patient's Discharge Instruction sheet Copy Copies To 2: ESTEBAN STACK MD, HOLLY R MD Jul 08, 2022 09:49
[2022-07-08] MEDS ORDERED: FERR325T5 PO (09:52)
[2022-07-08] MEDS ORDERED: DOCU100C37 PO (09:52)
== END 2022-07-08 12:00 | disposition home or self-care (01) | DRG 806 ==
LOC: WSo 00:30 → LDRP 00:31 → WSo 02:09 → LDRP 02:10
PROVIDERS: ADMIT Family Medicine; ATTEND Family Medicine
PROC: 10E0XZZ Delivery of Products of Conception, External Approach (ICD-10-PCS; principal; 2022-07-07)
PROC: 10907ZC Drainage of Amniotic Fluid, Therapeutic from Products of Conception, Via Natural or Artificial Opening (ICD-10-PCS; 2022-07-07)
DX: O48.0 Post-term pregnancy (principal); D62 Acute posthemorrhagic anemia; Z37.0 Single live birth; O24.429 Gestational diabetes mellitus in childbirth, unspecified control; Z3A.40 40 weeks gestation of pregnancy; O77.0 Labor and delivery complicated by meconium in amniotic fluid; O90.81 Anemia of the puerperium; Z28.310 Unvaccinated for COVID-19
CPT/HCPCS: 36415; 85025; 86780; 86850; 86900; 86901